=== PATIENT | male | born 1995 | race Caucasian/White ===

== ENCOUNTER 2016-10-08 14:15 | Emergency (ER) | payer SELFPAY ==
[2016-10-08 14:26] VITALS: BP 140/78
--- NOTE | 2016-10-08 15:27 | UC ---
Throat Pain/Nasal Gino HPI - HPI Summary HPI Summary: THREE DAYS OF SORE THROAT, OCCASIONAL COUGH AND WHEEZING (RAN OUT OF ALBUTEROL INHALER) NOTICED SORE ON UPPER LIP. USES CHEWING TOBACCO, PLANS ON QUITTING. - History of Current Complaint Chief Complaint: UCRespiratory Stated Complaint: SORE THROAT SPOT IN MOUTH Time Seen by Provider: 10/08/16 14:20 Hx Obtained From: Patient Onset/Duration: Gradual Onset, Lasting Days, Still Present Severity: Mild Cough: Nonproductive Associated Signs & Symptoms: Positive: Wheezing, Hoarseness, Nasal Discharge - Epiglottits Risk Factors Epiglottis Risk Factors: Negative - Allergies/Home Medications Allergies/Adverse Reactions: Allergies Allergy/AdvReac Type Severity Reaction Status Date / Time No Known Allergies Allergy Unverified 03/21/14 12:12 PMH/Surg Hx/FS Hx/Imm Hx Previously Healthy: Yes Respiratory History Of: Reports: Asthma - Surgical History Surgical History: Yes Surgery Procedure, Year, and Place: T&A, TUBES IN EARS - Family History Known Family History: Positive: Respiratory Disease - Social History Occupation: Unemployed Lives: With Family Alcohol Use: None Substance Use Type: None Smoking Status (MU): Current Every Day Smoker Type: Cigarettes, Smokeless Tobacco Amount Used/How Often: 1 daily Cessation Counseling: Counseled 3+Min - 10 Min Review of Systems Constitutional: Negative Skin: Rash - SMALL 0.5 CM X 0.5 CM TEMNDER ULCERATION LEFT UPPER LIP Eyes: Negative ENT: Sore Throat, Nasal Discharge Respiratory: Cough Cardiovascular: Negative Gastrointestinal: Negative Genitourinary: Negative Motor: Negative Neurovascular: Negative Musculoskeletal: Negative Neurological: Negative Psychological: Negative All Other Systems Reviewed And Are Negative: Yes - Comments Additional Review of Systems Comments: Current medications reviewed and performance met. except as documented, all other systems reviewed and negative Physical Exam Triage Information Reviewed: Yes Appearance: Well-Appearing, No Pain Distress, Well-Nourished Vital Signs: Initial Vital Signs Temp 97.9 F 10/08/16 14:22 Pulse 87 10/08/16 14:22 Resp 18 10/08/16 14:22 BP 140/78 10/08/16 14:22 Pulse Ox 98 10/08/16 14:22 Vital Signs Reviewed: Yes Eye Exam: Normal ENT: Positive: Hearing grossly normal, Pharyngeal erythema, TMs normal Dental: Positive: Other: - SMALL 0.5 CM X 0.5 CM TEMNDER ULCERATION LEFT UPPER LIP. Negative: Percussion Tenderness @, Gross Decay/Caries @, Dental Fracture @ , Cellulitis @ Neck exam: Normal Neck: Positive: Supple, Nontender, No Lymphadenopathy. Negative: Nuchal Rigidity, Tenderness @, Enlarged Nodes @ Respiratory Exam: Normal Respiratory: Positive: Chest non-tender, Lungs clear, No respiratory distress, No accessory muscle use. Negative: Wheezing Cardiovascular Exam: Normal Cardiovascular: Positive: RRR, No Murmur, Pulses Normal, Brisk Capillary Refill Abdominal Exam: Normal Abdomen Description: Positive: Nontender, No Organomegaly, Soft. Negative: Splenomegaly Musculoskeletal Exam: Normal Musculoskeletal: Positive: Strength Intact, ROM Intact, No Edema Neurological Exam: Normal Psychological Exam: Normal Skin Exam: Normal Throat Pain/Nasal Course/Dx - Differential Dx/Diagnosis Differential Diagnosis/HQI/PQRI: Sinusitis, URI Provider Diagnoses: APHTHOUS ULCER RIGHT SUPERIOR LIP. UPPER RESPIRATORY INFECTION. ASTHMA. SMOKELESS TOBACCO USE Discharge - Discharge Plan Condition: Stable Disposition: HOME Prescriptions: Albuterol HFA INHALER* [Ventolin HFA Inhaler*] 1 - 2 puff INH Q6H PRN #1 mdi PRN Reason: Wheezing Povidone-Sodium Hyaluronate-Gl [[place]] 1 gel MT TID PRN #15 packet PRN Reason: Pain Patient Education Materials: Canker Sores (ED), Upper Respiratory Infection (ED ), Wheezing (ED), How to Quit Using Smokeless Tobacco (ED) Referrals: [facility] [Outside] Letitia Pena MD [Primary Care Provider] -
== END 2016-10-08 15:30 | disposition home or self-care (01) ==
LOC: UCEAST 14:15
DX: K12.0 Recurrent oral aphthae (principal); J06.9 Acute upper respiratory infection, unspecified; J45.909 Unspecified asthma, uncomplicated; F17.210 Nicotine dependence, cigarettes, uncomplicated; Z71.6 Tobacco abuse counseling
CPT/HCPCS: 87651; 99212; G0463

== ENCOUNTER 2018-09-25 07:48 | Emergency (ER) | payer OTHER ==
--- NOTE | 2018-09-25 08:08 | ED ---
Abdominal Pain/Male - HPI Summary HPI Summary: This pt is a 23 y/o male presenting to [facility] [place] [place] c/o upper abd pain for the past 3 to 4 days. Pt describes a "shooting pain" in his upper abdomen. He notes early satiety and states will get full with "one tiny bite." Pt reports associated nausea and wants to vomit but "his body won't let him." Denies fever, vomiting, diarrhea, constipation. He currently rates his pain 7/10 in severity. No PMHx. - History of Current Complaint Chief Complaint: EDAbdPain Stated Complaint: UPPER ABD PAIN PER PT Time Seen by Provider: 09/25/18 08:01 Hx Obtained From: Patient Onset/Duration: Lasting Days, Still Present Timing: Lasting Days Pain Intensity: 7 Pain Scale Used: 0-10 Numeric Location: Other - upper abdomen Radiates: No Aggravating Factor(s): Nothing Alleviating Factor(s): Nothing Associated Signs And Symptoms: Positive: Nausea. Negative: Fever, Constipation , Vomiting - Allergies/Home Medications Allergies/Adverse Reactions: Allergies Allergy/AdvReac Type Severity Reaction Status Date / Time No Known Allergies Allergy Unverified 03/21/14 12:12 PMH/Surg Hx/FS Hx/Imm Hx Cardiovascular History: Denies: Hx Hypertension Respiratory History: Reports: Hx Asthma - Surgical History Surgery Procedure, Year, and Place: T&A, TUBES IN EARS Infectious Disease History: No Infectious Disease History: Denies: Traveled Outside the [place] in Last 30 Days - Family History Known Family History: Positive: Respiratory Disease - Social History Alcohol Use: Occasionally Substance Use Type: Reports: None Smoking Status (MU): Current Every Day Smoker Type: Cigarettes, Smokeless Tobacco Amount Used/How Often: 1 daily Review of Systems Negative: Fever Positive: Abdominal Pain, Nausea. Negative: Vomiting, Diarrhea, Other - constipation All Other Systems Reviewed And Are Negative: Yes Physical Exam - Summary Physical Exam Summary: VITAL SIGNS: Reviewed. GENERAL: Patient is a well-developed and nourished male who is lying comfortable in the stretcher. Patient is not in any acute respiratory distress. HEAD AND FACE: Normocephalic and atraumatic. EYES: PERRLA, EOMI x 2, No injected conjunctiva. EARS: Hearing grossly intact. Ear canals and tympanic membranes are WNL. MOUTH: Oropharynx within normal limits. NECK: Supple, trachea is midline, no adenopathy, no JVD. CHEST: Symmetric, no tenderness at palpation LUNGS: Clear to auscultation bilaterally. No wheezing or crackles. CVS: RRR, S1 and S2 present, no murmurs or gallops appreciated. ABDOMEN: Soft, left lower abdominal tenderness. No signs of distention. Positive bowel sounds. No rebound no guarding, and no masses palpated. No abdominal bruit or pulsations. EXTREMITIES: FROM in all major joints, no edema, no cyanosis or clubbing. NEURO: Alert and oriented x 3. No acute neurological deficits. Speech is normal. SKIN: Dry and warm Triage Information Reviewed: Yes Vital Signs On Initial Exam: Initial Vitals Temp Pulse Resp BP Pulse Ox 97.3 F 94 18 132/94 99 09/25/18 07:51 09/25/18 07:51 09/25/18 07:51 09/25/18 07:51 09/25/18 07:51 Vital Signs Reviewed: Yes Diagnostics - Vital Signs Vital Signs Temp Pulse Resp BP Pulse Ox 09/25/18 07:51 97.3 F 94 18 132/94 99 - Laboratory Result Diagrams: 09/25/18 08:24 09/25/18 08:24 Lab Statement: Any lab studies that have been ordered have been reviewed, and results considered in the medical decision making process. - CT Abdomen/Pelvis CT CT Interpretation Completed By: Radiologist Summary of CT Findings: IMPRESSION: Prominent lymph node in the mesentery with lymph nodes in the mesentery measuring up to 0.8 cm in the short axis although multiple lymph nodes are noted. There may be some stranding of the mesentery and the possibility of mesenteric panniculitis should BE considered. Appendix appears normal. Dr. Dunn has reviewed this report. Re-Evaluation - Re-Evaluation First Eval Re-Evaluation Time: 12:04 Comment: Reviewed all results with pt. Discussed following up on Friday with Dr. Salazar, GI. Abdominal Pain Male Course/Dx - Course Assessment/Plan: This patient is a 23-year-old male who presents to the emergency department with chief complaint of abdominal pain. Test results without any significant abnormality except for CRP of 25.2. Abdominal and pelvic CT IMPRESSION: Prominent lymph node in the mesentery with lymph nodes in the mesentery measuring up to 0.8 cm in the short axis although multiple lymph nodes are noted. There may be some stranding of the mesentery and the possibility of mesenteric panniculitis should BE considered. Appendix appears normal. In the ED course the patient was given IV fluids and Toradol for the pain. I discussed my physical exam and findings with Dr. Salazar from GI and she recommends for the patient to be discharged home with a prescription for ibuprofen and omeprazole. She will see the pt at clinic on Friday at 1:30 PM. I discussed the findings, results and the plan with the patient and he agrees. Patient is feeling more comfortable and better. The patient will be discharged home with follow-up from PCP and GI. - Diagnoses Differential Diagnosis/HQI/PQRI: Appendicitis, Bowel Obstruction, Constipation, Diverticulitis Provider Diagnoses: Mesenteric panniculitis - Provider Notifications Discussed Care Of Patient With: Hamida Salazar Time Discussed With Above Provider: 11:36 Instructed by Provider To: Other - Discussed the case with Dr. Salazar, GI, who recommends prescription for ibuprofen and omeprazole and discharge home with follow up at her office. Discharge - Sign-Out/Discharge Documenting (check all that apply): Patient Departure - Discharge home Patient Received Moderate/Deep Sedation with Procedure: No - Discharge Plan Condition: Stable Disposition: HOME Prescriptions: Ibuprofen TAB* [Motrin TAB* 600 MG] 600 mg PO Q8H PRN #20 tab PRN Reason: Pain Omeprazole CAP (NF) [Prilosec CAP* 20 MG] 20 mg PO DAILY #14 cap. Referrals: [facility] [Outside] Hamida Salazar MD [Medical Doctor] - Additional Instructions: You have an appointment with Dr. Salazar, loan clerk, on Friday (03/11) at 1:30 PM. RETURN TO THE EMERGENCY DEPARTMENT FOR ANY WORSENING OR NEW SYMPTOMS. - Billing Disposition and Condition Condition: STABLE Disposition: Home - Attestation Statements Document Initiated by Scribe: Yes Documenting Scribe: Carmita Cabrera Provider For Whom Scribe is Documenting (Include Credential): Luke Dunn MD Scribe Attestation: Carmita Bustos, scribed for Luke Dunn MD on 09/25/18 at 1844. Scribe Documentation Reviewed: Yes Provider Attestation: The documentation as recorded by the scribe, Carmita Cabrera accurately reflects the service I personally performed and the decisions made by me, Luke Dunn MD Status of Scribe Document: Viewed
[2018-09-25] MEDS ORDERED: NS 0.9% 1000 ML** 1,000 ML IV ONE (08:09)
[2018-09-25] MEDS ORDERED: Ondansetron INJ* 2 MG/ML VIAL IV ONE (08:09)
[2018-09-25 08:29] LABS: ABS Basophils 0.1 10^3/ul (0-0.2); ABS Eosinophils 0.3 10^3/ul (0-0.6); ABS Lymphocytes 2.1 10^3/ul (1.0-4.8); ABS Monocytes 1.1 10^3/ul (0-0.8); ABS Neutrophils 6.6 10^3/ul (1.5-7.7); ABS Nucleated RBC 0 10^3/ul; Eosinophil % 3.1 %; Hematocrit 43 % (36-46); Hemoglobin 14.1 g/dL (14.0-18.0); Lymphocyte % 20.6 %; Mean Corpuscular HGB Conc 33 g/dL (31-36); Mean Corpuscular Hemoglobin 26 pg (27-31); Mean Corpuscular Volume 79 fL (80-94); Mean Platelet Volume 7.6 fL (7.4-10.4); Nucleated Red Blood Cells % 0.3; Platelet Count 208 10^3/uL (150-450); Red Cell Distribution Width 15 % (10.5-15); White Blood Count 10.1 10^3/uL (3.5-10.8)
[2018-09-25 08:47] LABS: ALT 18 U/L (7-52); AST 13 U/L (13-39); Albumin 3.9 g/dL (3.2-5.2); Albumin/Globulin Ratio 1.4 (1-3); Alkaline Phosphatase 67 U/L (34-104); Amylase 13 U/L (29-103); Anion Gap 4 mmol/L (2-11); BUN/Creatinine Ratio 19.1 (8-20); Blood Urea Nitrogen 18 mg/dL (6-24); C Reactive Protein 25.22 mg/L (<8.01); CO2 Carbon Dioxide 28 mmol/L (22-32); Calcium 9.2 mg/dL (8.6-10.3); Chloride 105 mmol/L (101-111); EGFR African American 120.3 (>60); EGFR Non-African American 99.5 (>60); Globulin 2.8 g/dL (2-4); Glucose 97 mg/dL (70-100); Potassium 4.2 mmol/L (3.5-5.0); Sodium 137 mmol/L (135-145); Total Protein 6.7 g/dL (6.4-8.9)
[2018-09-25] MEDS ORDERED: Iohexol 300* (CONTRAST) 10 ML SDV IV ONE (08:54)
[2018-09-25] MEDS ORDERED: Ketorolac INJ* 30 MG/ML 1 ML VIAL IV PUSH ONE (11:38)
[2018-09-25] MEDS ORDERED: Omeprazole CAP (NF) 20 MG CAP.DR PO ONE (11:39)
[2018-09-25 12:10] VITALS: BP 129/85
[2018-09-25 12:38] LABS: % Iron Saturation 13 % (15-55); Iron 41 ug/dL (50-212); Total Iron Binding Capacity 309 mcg/dL (250-450); Transferrin 221 mg/dL (203-362)
[2018-09-25 12:58] LABS: Ferritin 107.9 ng/mL (24-336)
[2018-09-25] MEDS ORDERED: Pantoprazole TAB * 40 MG TAB PO ONE (13:00)
== END 2018-09-25 12:23 | disposition home or self-care (01) ==
LOC: ED 07:48
DX: K65.4 Sclerosing mesenteritis (principal); F17.210 Nicotine dependence, cigarettes, uncomplicated; J45.909 Unspecified asthma, uncomplicated
CPT/HCPCS: 36415; 74177; 80053; 82150; 82728; 83540; 83550; 83605; 83690; 85025; 86140; 96361; 96374; 99283; A9270-GY; J1885; J2405; Q9967